=== PATIENT | female | born 1990 | race Caucasian/White ===

== ENCOUNTER 2019-06-16 14:13 | Outpatient (CLI) | payer OTHER | END 2019-06-16 14:14 | disposition home or self-care (01) | LOC: ULT 14:13 | PROVIDERS: ATTEND Obstetrics & Gynecology | DX: R06.00 Dyspnea, unspecified (principal); I07.1 Rheumatic tricuspid insufficiency; I37.1 Nonrheumatic pulmonary valve insufficiency | CPT/HCPCS: 93306 ==

== ENCOUNTER 2019-08-18 06:32 | Inpatient (IN) | payer OTHER, SELFPAY ==
[2019-08-18] MEDS ORDERED: Betamet Acet/Betamet Na Ph 30 MG/5 ML VIAL ONE (07:05)
[2019-08-18] MEDS ORDERED: Butorphanol Tartrate 1 MG/ML VIAL SLOW IVP PRN (07:05)
[2019-08-18] MEDS ORDERED: hydrALAZINE 20 MG/ML VIAL SLOW IVP PRN ×2 (07:05→12:46)
[2019-08-18] MEDS ORDERED: Promethazine HCl 25 MG/ML VIAL IM PRN ×2 (07:05→11:07)
[2019-08-18] MEDS ORDERED: Acetaminophen 500 MG TAB PO PRN (07:05)
[2019-08-18] MEDS: Lactated Ringer's 1,000 ML IV SCH ×2 (07:21→23:32)
[2019-08-18 07:35] VITALS: BMI 35.0
[2019-08-18] MEDS ORDERED: Ondansetron PF 4 MG/2 ML Vial ONE ×2 (07:43→10:47)
[2019-08-18 08:04] LABS: Hemoglobin 11.8 g/dL (12.0-16.0); Mean Corpuscular HGB CONC 33.2 g/dL (32.0-36.0); Mean Corpuscular Volume 96.7 fL (78.0-98.0); Mean Platelet Volume 9.3 fL (7.4-10.4); Platelet Count 283 thou/uL (130-400); RBC Distribution Width 11.5 % (11.5-14.5); Red Blood Cell (RBC) Count 3.69 mill/uL (4.20-5.40); White Blood Cell (WBC) Count 11.5 thou/uL (4.8-10.8)
[2019-08-18] MEDS ORDERED: Magnesium Sulfate 20 gm/500 ml 20 GM/500 ML BAG ONE (08:10)
[2019-08-18 08:13] LABS: Bacteria/HPF None Seen HPF (None Seen); Bilirubin Negative (Negative); Blood, Urine Negative (Negative); Clarity Clear (Clear); Glucose, Urine (Dipstick) 300 mg/dL (Negative); Leukocyte Negative Leu/uL (Negative); Nitrite Negative (Negative); Protein, Urine (Dipstick) Negative (Neg-Trace); RBC/HPF 0-3 HPF (0-3); Squamous Epithelial None Seen HPF (0-3); Urobilinogen Normal mg/dL (Less than 2); WBC/HPF 0-3 HPF (0-3)
[2019-08-18] MEDS ORDERED: Dextrose 50% Abboject 50 ML SYRINGE SLOW IVP PRN ×2 (08:22→14:30)
[2019-08-18] MEDS ORDERED: Dextrose 5% in Water 1,000 ML IV PRN ×2 (08:22→14:30)
[2019-08-18] MEDS ORDERED: Insulin Regular 300 UNITS/3 ML VIAL SC PRN ×2 (08:22→14:30)
[2019-08-18] MEDS ORDERED: Magnesium Sulfate 20 GM/WATER 500 ML BAG IVPB SCH (08:30)
[2019-08-18] MEDS ORDERED: Magnesium Sulfate 20 gm/500 ml 20 GM/500 ML BAG IVPB SCH (08:30)
[2019-08-18 08:39] LABS: Syphilis Antibody Nonreactive (Nonreactive); Syphilis Antibody Index 0.04 S/CO (<1.00 Non-Reactive)
[2019-08-18] MEDS ORDERED: Betamet Acet/Betamet Na Ph 30 MG/5 ML VIAL IM SCH (09:00)
[2019-08-18 09:13] LABS: HBSAg Index 0.13 S/CO (0-0.99); HIV (1/2) Antibody/Antigen Non-Reactive (NonReactive); Hep B Surf Ag Non-Reactive S/CO (NonReactive)
[2019-08-18] MEDS ORDERED: MORPHINE 5 MG/10 ML PF VIAL ONE (10:13)
[2019-08-18] MEDS ORDERED: Oxytocin 10 UNITS/ML VIAL ONE (10:13)
[2019-08-18] MEDS ORDERED: Bicitra 30 ML UDCUP PO SCH (10:15)
[2019-08-18] MEDS ORDERED: CEFAZOLIN 2 GM in Premix Bag 1 BAG IVPB SCH (10:15)
--- NOTE | 2019-08-18 10:20 | PDOC.LDPN ---
Labor & Delivery Progress Note - Subjective Subjective: painful contractions - Objective Vital signs reviewed and normal: yes General: breathing through contractions Dilation: 4 Effacement: 100% FHT: category 1 AROM: clear fluid - Assessment (1) 32 weeks gestation of Code(s): Z3A.32 - 32 WEEKS GESTATION OF Current Visit: Yes Status : Acute (2) History of premature rupture of membranes (PPROM) Code(s): Z87.59 - PERSONAL HISTORY OF COMP OF PREG, CHLDBRTH AND THE PUERP Current Visit: Yes Status: Acute (3) Breech presentation Code(s): O32.1XX0 - MATERNAL CARE FOR BREECH PRESENTATION, UNSP Current Visit : Yes Status: Acute Plan: other -: A/aP: 32.4 weeks PPROM w active labor, sp 1 dose celestone, will move to OR for delivery secondary to breech presentation and active labor.
[2019-08-18] MEDS ORDERED: EPHEDRINE 25 MG/5 ML SYRINGE ONE ×2 (10:27→10:29)
[2019-08-18] MEDS ORDERED: Naloxone HCl 0.4 mg/ml Vial IVP PRN ×2 (11:07)
[2019-08-18] MEDS ORDERED: diphenhydrAMINE 50 MG/ML VIAL IVP PRN (11:07)
[2019-08-18] MEDS ORDERED: Promethazine HCl 25 MG SUPP PR PRN (11:07)
[2019-08-18] MEDS ORDERED: Ondansetron PF 4 MG/2 ML Vial IVP PRN (11:07)
[2019-08-18] MEDS ORDERED: Ketorolac Tromethamine 30 MG/ML VIAL IVP PRN (11:07)
[2019-08-18] MEDS ORDERED: Naloxone HCl 0.4 mg/ml Vial IV PRN (11:07)
[2019-08-18] MEDS ORDERED: Communication Order-Pharmacy FS SCH (11:15)
[2019-08-18] MEDS ORDERED: ERYTHROMYCIN IVPB SCH (12:00)
[2019-08-18] MEDS ORDERED: ADMIXTURE FEE IVPB SCH (12:00)
[2019-08-18] MEDS ORDERED: SODIUM CHLORIDE IVPB SCH (12:00)
[2019-08-18] MEDS ORDERED: Ampicillin 2 GM in Sodium Chloride 0.9% 100 ML IVPB SCH (12:00)
[2019-08-18] MEDS ORDERED: NS / Oxytocin 40 units/1000ml 1,000 ML ONE (12:44)
[2019-08-18] MEDS ORDERED: Bisacodyl 10 MG SUPP PR PRN (12:46)
[2019-08-18] MEDS ORDERED: Lanolin Ointment 7 GM TUBE TOP PRN (12:46)
[2019-08-18] MEDS ORDERED: diphenhydrAMINE 25 MG CAP PO PRN (12:46)
[2019-08-18] MEDS ORDERED: NS / Oxytocin 40 units/1000ml 1,000 ML IV SCH (12:46)
[2019-08-18] MEDS: Ondansetron PF 4 MG/2 ML Vial IVP PRN ×2 (15:09→19:37)
--- NOTE | 2019-08-18 17:13 | OP ---
DATE OF PROCEDURE: 08/18/2019 PROCEDURE PERFORMED: Primary low transverse section. 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 POSTOPERATIVE DIAGNOSES: A 28-year-old female at 32 weeks and 4 days gestation with rupture of membranes and breech presentation in active labor, class C diabetes. COMPLICATIONS: None. ESTIMATED BLOOD LOSS: 600 mL. QUANTITATIVE BLOOD LOSS: Pending. ANESTHESIA: Spinal. OPERATIVE FINDINGS: 1. Female , Apgars and weight pending at the time of dictation. 2. Low-transverse hysterotomy without extension. 3. Normal-appearing uterus, tubes, and ovaries bilaterally. 4. Calcified placenta. 5. Fundus firm after delivery of the placenta. 6. Hemostatic hysterotomy site. INDICATION: Ms. Amada Marshall presented as early this morning with rupture of membranes at 32 weeks and 4 days. We discussed the risks and benefits of magnesium as well as steroids for lung maturity. The patient was started on antibiotics for latency and magnesium in attempt to try and achieve steroid benefit and was given one dose of Celestone. Her labor continued to active labor and the plan was move to the OR for section. DESCRIPTION OF PROCEDURE: The patient was in the OR with IV fluids that had previously been running and Sahu catheter that had previously been placed. The patient received spinal anesthesia per Dr. Johnson. She was then placed in dorsal supine position with a left lateral tilt. The abdomen was prepped and draped in normal fashion for section. Surgeons were gowned and gloved. The anesthesia was assessed and found to be adequate. A Pfannenstiel skin incision was made with a scalpel. The skin incision was carried down through the subcutaneous tissue to the fascia. Once the fascia was reached, it was incised in the midline and extended superolaterally using curved Arzola scissors. Izabella clamps were placed at the superior border of the fascia, which was sharply and bluntly dissected off the rectus abdominis muscles. In similar fashion, the clamps were placed at the inferior border of the fascia. This was dissected down towards the level of pubic symphysis. The rectus muscles were in the midline. The peritoneum was bluntly entered and stretched laterally. An Isaiah O retractor was placed into the peritoneal cavity for retraction, visualization, and protection of the wound. A bladder flap was created with a scalpel and the bladder was dissected away from the planned hysterotomy site. A low-transverse hysterotomy was made with a scalpel and the hysterotomy was stretched using the Reed maneuver. The infant's buttock was presenting at the hysterotomy. The feet were grasped at the level of the hysterotomy and delivered gently through the incision. With gentle rotation, the left upper extremity spontaneously delivered. With counter rotation, the right upper extremity presented and was delivered by internally rotating the upper extremity across the 's chest. The head was then delivered without difficulty. The nose and mouth were suctioned. The cord was doubly clamped and cut, and the infant was handed off to special care nurse in attendance. Cord blood was collected. The placenta was delivered. It was noted to be calcified and was sent to Pathology. The uterus was exteriorized, massaged to firm and cleared of clot and debris. The hysterotomy was inspected and no extensions were noted. The hysterotomy was reapproximated with Monocryl suture in a running locked fashion. After the hysterotomy was completely reapproximated, the serosal layer was closed with a 2nd layer using Monocryl suture. After the hysterotomy was closed in 2 layers and noted to be hemostatic, the hysterotomy and paracolic gutters were irrigated and suctioned dry. The hysterotomy was again inspected and no bleeding was noted. The 1st count was correct. The Isaiah retractor was removed from the abdominal cavity. The rectus muscle and fascia were inspected and no areas of bleeding were noted. The rectus fascia was then reapproximated with PDS suture from corner to corner. The subcutaneous layer was copiously irrigated and dry. Any small areas of bleeding were controlled with Bovie cauterization. The subcutaneous layer was reapproximated with plain gut suture. The skin was closed with 4-0 Monocryl and dressed with Dermabond dressing. The patient tolerated the procedure well. The baby was transported in an isolette to the NICU in good condition. The final count was correct. Job ID: [id number] MTDD
[2019-08-18] MEDS: Docusate Calcium (SURFAK) 240 MG CAP PO SCH (21:00)
[2019-08-18] MEDS: Ferrous Sulfate 325 MG TAB PO SCH (21:00)
[2019-08-18] MEDS ORDERED: HYDROcodone/Acetaminophen 5/325 mg Tablet PO PRN ×2 (23:15)
[2019-08-18] MEDS ORDERED: Zolpidem Tartrate 5 MG TAB PO PRN (23:15)
[2019-08-19 07:09] LABS: Hemoglobin 11.3 g/dL (12.0-16.0); Mean Corpuscular HGB CONC 33.3 g/dL (32.0-36.0); Mean Corpuscular Hemoglobin 32.3 pg (27.0-31.0); Mean Platelet Volume 9.2 fL (7.4-10.4); Platelet Count 285 thou/uL (130-400); RBC Distribution Width 11.4 % (11.5-14.5); Red Blood Cell (RBC) Count 3.48 mill/uL (4.20-5.40); White Blood Cell (WBC) Count 20.4 thou/uL (4.8-10.8)
[2019-08-19] MEDS: Prenatal Vitamin 1 TAB PO SCH (07:51)
[2019-08-19] MEDS: Docusate Calcium (SURFAK) 240 MG CAP PO SCH ×2 (07:51→21:07)
[2019-08-19] MEDS: Acetaminophen 325 MG TAB PO PRN (07:52)
[2019-08-19] MEDS: Simethicone Chewable 80 MG TAB PO PRN ×2 (07:52→21:06)
--- NOTE | 2019-08-19 07:58 | PDOC.PP ---
Post Progress Note Post Day #: 1 Subjective: Good pain control. Glucose control is good. Baby progressing well in NICU. PO intake tolerated: yes Flatus: yes Ambulation: yes Vital Signs (12 hours) Temp Pulse Resp BP Pulse Ox 08/19/19 04:00 98.2 F 73 18 106/56 L 08/19/19 01:20 98.6 F 71 18 107/64 08/18/19 22:03 97.6 F 60 12 104/68 96 08/18/19 21:45 96 Weight Weight 204 lb - Physical Examination Abdominal: no distention (incision intact/dry.), appropriately TTP Result Diagrams: 08/19/19 06:32 Additional Labs: Post Labs Blood Type O POSITIVE 08/18/19 09:26 Hep Bs Antigen Non-Reactive S/CO (NonReactive) 08/18/19 07:48 - Assessment/Plan Post op day 1-primary c/s for breech/labor at 32 weeks. Type 1 IDDM -glycemic control doing well. Patient managing -basal rate cut in half. glucose levels 70- 80's...Routine post op care. Possible d/c to B&B tomorrow...
[2019-08-19] MEDS: Ferrous Sulfate 325 MG TAB PO SCH ×2 (08:05→21:07)
[2019-08-19] MEDS ORDERED: Adacel (T-DAP) 0.5 ML SYRINGE IM ONE (09:00)
[2019-08-19] MEDS: Ibuprofen 800 MG TAB PO SCH ×2 (12:13→21:07)
[2019-08-19] MEDS ORDERED: Milk Of Magnesia 30 ML UDCUP PO PRN (15:17)
[2019-08-20] MEDS: Ibuprofen 800 MG TAB PO SCH ×3 (05:12→20:35)
--- NOTE | 2019-08-20 05:53 | PDOC.PP ---
Post Progress Note Post Day #: 2 Subjective: Patient doing well. No significant overnight events. Lochia minimal. Good pain control. PO intake tolerated: yes Flatus: yes Ambulation: yes Vital Signs (12 hours) Temp Pulse Resp BP Pulse Ox 08/20/19 05:10 98.8 F 109 H 20 120/67 08/20/19 01:00 98.1 F 100 18 127/75 08/19/19 21:00 97.9 F 69 18 115/72 96 Weight Weight 92.533 kg - Physical Examination General: NAD Cardiovascular: RRR Respiratory: non-labored breathing Abdominal: + bowel sounds, lochia (minimal), no distention, appropriately TTP Skin: CS incision dry & intact, no rash Neurological: no gross focal deficits Psychiatric: A&Ox3, normal affect Result Diagrams: 08/19/19 06:32 Additional Labs: Post Labs Blood Type O POSITIVE 08/18/19 09:26 Hep Bs Antigen Non-Reactive S/CO (NonReactive) 08/18/19 07:48 (1) S/P primary low transverse Code(s): Z98.891 - HISTORY OF UTERINE SCAR FROM PREVIOUS SURGERY Status: Acute - Assessment/Plan Routine PP care - Post op day #2 - Meeting PP milestones - Lochia minimal - Good pain control - Incision healing well IDDM type I - Self managing - Reports good control; has cut basal insulin in half since delivery - Reports some low blood sugars, high to 160. She is adjusting as necessary. She has not had to use much short acting. Dispo: Will plan to keep patient additional night. Bed and Breakfast tomorrow as in NICU. Addendum - Attending - Attending Attestation Date/Time: 08/20/19 06 I personally evaluated the patient and discussed the management with Dr. Willams. I agree with the History, Examination, Assessment and Plan documented above.
[2019-08-20 08:28] VITALS: TEMP 97.9
[2019-08-20] MEDS: Ferrous Sulfate 325 MG TAB PO SCH (08:41)
[2019-08-20] MEDS: Prenatal Vitamin 1 TAB PO SCH (08:41)
[2019-08-20] MEDS: Polyethylene Glycol 3350 17 GM Packet PO SCH (08:41)
[2019-08-20] MEDS: Docusate Calcium (SURFAK) 240 MG CAP PO SCH ×2 (08:41→20:35)
[2019-08-20] MEDS: Acetaminophen 325 MG TAB PO PRN ×2 (08:48→17:53)
[2019-08-21 00:01] VITALS: BP 132/76
[2019-08-21] MEDS: Ferrous Sulfate 325 MG TAB PO SCH ×3 (00:03→11:11)
[2019-08-21] MEDS: Acetaminophen 325 MG TAB PO PRN ×3 (01:21→16:57)
[2019-08-21] MEDS: Ibuprofen 800 MG TAB PO SCH ×2 (05:08→13:49)
--- NOTE | 2019-08-21 07:40 | DIS ---
DATE OF ADMISSION: 08/18/2019 DATE OF DISCHARGE: 08/21/2019 TIME OF SERVICE: 0715. HOSPITAL COURSE: The patient is postoperative day #3 from a section by Dr. Rees. The is complicated by an insulin-dependent diabetes. She has had an unremarkable postoperative course, is doing well. PHYSICAL EXAMINATION: VITAL SIGNS: Temperature 97.9, pulse 82, respirations 14, blood pressure 132/76. HEENT: Within normal limits. LUNGS: Clear to auscultation bilaterally. HEART: Regular rate and rhythm. ABDOMEN: Soft and nontender. Bowel sounds all 4 quadrants. Incision, intact and dry. No erythema. EXTREMITIES: No clubbing, cyanosis, or edema. IMPRESSION: Doing well, postoperative day #3-4. PLAN: Discharge home. 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 Follow up with [facility] in 6 weeks. Job ID: [id number]
[2019-08-21] MEDS: Docusate Calcium (SURFAK) 240 MG CAP PO SCH (09:33)
[2019-08-21] MEDS: Prenatal Vitamin 1 TAB PO SCH (09:33)
[2019-08-21] MEDS: Polyethylene Glycol 3350 17 GM Packet PO SCH (09:33)
== END 2019-08-21 17:30 | disposition home or self-care (01) | DRG 788 ==
LOC: L&D/OP 06:32 → L&D 07:05 → 3SW 13:43
PROVIDERS: ADMIT Obstetrics & Gynecology; ATTEND Obstetrics & Gynecology
PROC: 10D00Z1 Extraction of Products of Conception, Low, Open Approach (ICD-10-PCS; principal; 2019-08-18)
DX: O24.02 Pre-existing type 1 diabetes mellitus, in childbirth (principal); Z3A.32 32 weeks gestation of pregnancy; Z37.0 Single live birth; E11.9 Type 2 diabetes mellitus without complications; O32.1XX0 Maternal care for breech presentation, not applicable or unspecified
CPT/HCPCS: 36415; 51701; 51702; 81001; 85027; 86780; 86850; 86900; 86901; 87081; 87340; 87389; 88307; 99285; J0690; J0702; J1364; J1885; J2274; J2405; J2590; J3475; J7050